=== PATIENT | female | born 2000 | race Caucasian/White ===

== ENCOUNTER 2024-06-24 10:38 | Day surgery (SDC) | payer SELFPAY ==
--- NOTE | 2024-06-23 14:52 | PCM.HP.BLA ---
History and Physical Date of Admission: 06/24/24 HPI: The patient is a 23 year old female presenting for pre-operative visit. She is scheduled for hysteroscopy D&C, for abnormal uterine bleeding 6 weeks postdelivery, with ultrasound findings of thickened endometrium consistent with retained products of conception. on 06/24/24. Procedure discussed along with risks, benefits and complications. Other alternatives discussed for management. Consent form signed? Yes. ? ? PAST MEDICAL HISTORY PAST MEDICAL HISTORYDiagnosisDate?Anemia??Endometriosis??Wanda Holland infection? ? ? PAST SURGICAL HISTORY PAST SURGICAL HISTORYProcedureLateralityDate?TONSILLECTOMY & ADENOIDECTOMY <AGE 10???possibly just tonsils ? ? ? CURRENT MEDICATIONS Current Outpatient MedicationsMedicationSigDispenseRefill?ferrous sulfate (IRON ORAL)Take by mouth.???thymol/chlorophyllin (CHLOROPHYLL ORAL)Take by mouth.???milk thistle/NAC/dandel/turmer (LIVER COMPLEX ORAL)Take by mouth.???No current facility-administered medications for this visit. ? ? ALLERGIES: Patient has no known allergies. ? PERSONAL HISTORY: SOCIAL HISTORY Social History?Tobacco Use?Smoking status:Never?Smokeless tobacco:NeverVaping Use?Vaping status:Never UsedSubstance Use Topics?Alcohol use:Not Currently?Drug use:Never ? FAMILY HISTORY: FAMILY HISTORY FAMILY HISTORY ProblemRelationAge of Onset?other (Arthrogryposis)Sister? ? ? REVIEW OF SYMPTOMS: GENERAL: denies fevers or chills ENDOCRINOLOGY: has not been on steroids Cardiology : denies palpitations or chest pain Respiratory: denies SOB or cough Hematology: denies history of prolonged bleeding or easy bruising or VTE Allergy: Denies history of personal or family history of allergy to anesthesia ? PHYSICAL EXAMINATION: ? VITALS: Blood pressure 108/70, pulse 83, resp. rate 16, height 165.1 cm (5' 5), weight 68.5 kg (151 lb), SpO2 98%, currently . ? GENERAL: The patient is well nourished, well hydrated in no acute distress. , The patient is oriented to time, place, and person. NECK: Supple. No lynphadenopathy, normal thyroid, no thyromegaly. LUNGS: Clear to auscultation bilaterally. no wheezes, rhonchi or rales HEART: Regular rate and rhythm, Normal heart sounds, and No murmurs or gallops ? IMPRESSION: 6 weeks from home delivery with ultrasound findings consistent with retained products of conception and abnormal uterine bleeding. See preoperative labs. ? PLAN: he risks/benefits/alternatives and personal involved for the planned Hysteroscopy D&CT were reviewed with the patient. Her questions were answered to her satisfaction and she desires to proceed. Consent was signed. I reviewed with her postop instructions and expectations. ? ? I have reviewed and updated past medical and surgical history, medications and allergies Assessment & Plan Assessment/Plan (1) Abnormal uterine bleeding (AUB): (2) Retained products of conception after delivery with complications: (3) Endometrial thickening on ultrasound:
[2024-06-24] VITALS (11 sets, daily range): BP systolic 93–107; BP diastolic 60–74; PULSE 63–86; RESP 14–16; TEMP 36.1–36.6; O2SAT 98–100; BMI 25.3
[2024-06-24 11:23] LABS: Absolute Lymphocyte Count 2.66 X10^3/uL (0.83-4.51); Absolute Neutrophil Count 2.6 X10^3/uL (2.0-7.7); Basophil# 0.06 X10^3/uL; Eosinophils% 1.7 % (0-5); Hemoglobin 12.7 g/dL (12.0-15.0); Lymphocyte # 2.66 X10^3/ul (0.83-4.51); Lymphocyte % 45.8 % (19-41); Mean Corp Hgb Conc 34.3 g/dL (32-36); Mean Corpuscular Hgb 29.6 pg (27.0-32.0); Mean Corpuscular Volume 86.2 fL (81-99); Mean Platelet Vol. 9.1 fl (6.2-12.0); Monocyte# 0.34 X10^3/uL; Monocyte% 5.9 % (0-10); NRBC Flagged by Analyzer 0 % (0-5); Neutrophil # 2.63 X10^3/uL (2.7-7.7); Neutrophil % 45.3 % (47-70); Platelet Count 228 K/mm3 (150-450); RBC Distribution Width CV 12.3 % (11.6-14.6); RBC Distribution Width SD 39.1 fl (35.1-43.9); Red Blood Count 4.29 M/mm3 (4.2-5.4); White Blood Count 5.8 K/mm3 (4.4-11.0)
--- NOTE | 2024-06-24 11:27 | PCM.PRE.AN2 ---
ASA Classification* ASA Classification ASA Classification: 2 Assessment & Plan Anesthesia* Anesthesia Assessment Anesthesia Assessment: Discussed sedation and/or anesthesia options, risks, benefits, and alternatives with patient/parents/legal guardian/POA. Questions invited. The patient/parents/legal guardian/POA seems to understand and agrees to proceed with anesthesia plan. Reviewed the physical assessment, medical history, allergy history and patient home medications list prior to surgery/procedure/anesthetic and documented any changes. Performed airway and anesthesia risk assessments. Anesthesia Type Anesthesia Type: MAC Anesthesia Focused Assessment* Temperature: 97.8 F Pulse Rate: 86 Blood Pressure: 107/74 Respiratory Rate: 16 Pulse Ox: 100 Airway Assessment Mouth opens: >3 cm Mallampati Score: II Focused Labs Anesthesia Preop lab: CBC WBC 5.8 K/mm3 (4.4-11.0) 06/24/24 11:16 06/24/24 RBC 4.29 M/mm3 (4.2-5.4) 06/24/24 11:16 06/24/24 Hgb 12.7 g/dL (12.0-15.0) 06/24/24 11:16 06/24/24 Hct 37.0 % (37-47) 06/24/24 11:16 06/24/24 Plt Count 228 K/mm3 (150-450) 06/24/24 11:16 06/24/24 CHEMISTRY COAG HCG, Quant Pending 06/24/24 11:16 06/24/24 Pre-Assessment Diagnosis/Proposed Procedure Planned Operative Procedure(s): D&C Anesthesia History 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 When Was Last Pacemaker Check QUESTION #4 FULL TEXT: You/Your Family Experience fever (hyperthermia) with Anesthesia Last Oral Intake Last Oral intake: Last Oral Intake NPO since 07:45 06/24/24 11:11 Meds taken in AM with sips of No 06/24/24 11:11 water? 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 technician Female Yes 06/23/24 13:33 HX of Motion Sickness No 06/23/24 13:33 HX of N/V After Surgery No 06/23/24 13:33 Non-Smoker Yes 06/23/24 13:33 Duration of Surgery greater No 06/23/24 13:33 than 60 minutes Number of Risk Factors 2 06/23/24 13:33 PONV Score Moderate Risk 06/23/24 13:33 Height & Weight Height & Weight: Anesthesia: Height & Weight Height 5 ft 4 in 06/24/24 11:11 Weight: 67 kg 06/24/24 11:11 Body Mass Index (BMI) 25.3 06/24/24 11:11 Respiratory Assessment Respiratory Assessment - pearl technician: Respiratory Tract Infection Hx - pearl technician Hx Respiratory Tract Infection No 06/23/24 13:33 STOP Sleep Apnea STOP Sleep Apnea - pearl technician: STOP Sleep Apnea - pearl technician Hx Hypertension No 06/23/24 13:33 Hx Sleep Apnea No 06/23/24 13:33 CPAP BIPAP Do you snore loudly (louder No 06/23/24 13:33 than talking or can be heard Do you often feel tired/ No 06/23/24 13:33 fatigued/ sleepy during daytime? Has anyone observed you stop No 06/23/24 13:33 breathing during sleep? STOP Results Negative 06/23/24 13:33 QUESTION #5 FULL TEXT : Do you snore loudly (louder than talking or can be heard through closed doors)? 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 Specify any problems Hx of Preganancy in last 3 Yes 06/23/24 13:33 Months Nurse Filling Out Transfusion VCHRISTIN 06/23/24 13:33 & Questions: Date: 06/23/24 06/23/24 13:33 Time: 13:36 06/23/24 13:33 Patient unable to answer at this time (ie. confused, unrespo /Reproduction History /Reproductive History - pearl technician: /Reproductive Hx- pearl technician Hx Now No 06/23/24 13:33 Gestational Age (in weeks): EDC: Hx Hx Para Hx Section SAB Yes 06/23/24 13:33 Active Medications Active Medications: Current Medications Generic Name Dose Route Start Last Admin Trade Name Freq PRN Reason Stop Dose Admin Cefazolin Sodium 2 gm/ N/A 20 mls @ 400 mls/hr 06/24/24 12:00 IV 06/24/24 12:02 INTRAOP ONE [facility] Medical History Anemia Syncope Gastric reflux Non-smoker Shortness of breath on exertion Home Medications ?Medication ?Instructions ?Recorded ?Last Taken ?Type Lactobacillus acidophilus 10 100 mmu cells PO DAILY 06/23/24 Unknown History billion cell capsule (NewFlora) colostrum, bovine 400 mg 400 mg PO DAILY 06/23/24 Unknown History capsule,delayed release ferrous sulfate 325 mg (65 mg 325 mg PO DAILY 06/23/24 Unknown History iron) tablet (Caesar-Time) potassium gluconate 595 mg (99 mg) 595 mg PO DAILY 06/23/24 Unknown History tablet Allergy/AdvReac Type Severity Reaction Status Date / Time No Known Allergies Allergy Verified 06/24/24 11:09 Surgical History Hx of tonsillectomy Social History Smoking Status: Never smoker Review of Systems (Anesthesia) ROS Narrative System reviewed and no additional complaints, except as documented.
[2024-06-24 11:55] LABS: hCG Titer Quant., Serum < 1 mIU/mL (<9 non-preg)
--- NOTE | 2024-06-24 12:26 | PCM.DC ---
Discharge Instructions Diet Discharge Diet: No restrictions DC O2, CPAP, BIPAP needs Home O2 Discharge instructions: No Dressing / Incision Discharge Activity: Return to Normal Activity, May Shower and May Take a Tub Bath (in 1 week) May resume sexual activity in: 1 week Lifting Restrictions: none Dressing / Incision Call your doctor if your incision/area has: Sudden Increased Bleeding and Foul Smelling Discharge Call your doctor if you observe: Fever of 101 or Higher and Using more than 1 pad per hour (for 2 hrs in a row) Follow Up Care Please Follow Up With: Yuliet Sanchez MD When: 2-4 or weeks or as needed. Call [phone] or send a Groupspeak message to make an appointment or with any concerns. Test Results: Test results from this visit will be discussed in further detail at your follow-up appointment, if applicable. Discharge Plan Admission Attending Provider: Yuliet Sanchez Primary Care Provider: Care Physician,No Primary Instructions Print Language: Honduran Discharge Orders/Prescriptions Prescriptions: No Action ferrous sulfate [Caesar-Time] 325 mg (65 mg iron) tablet 325 mg PO DAILY colostrum, bovine 400 mg capsule,delayed release(DR/EC) 400 mg PO DAILY potassium gluconate 595 mg (99 mg) tablet 595 mg PO DAILY NewFlora 10 billion cell capsule 100 mmu cells PO DAILY Disposition Disposition (needs filled in before D/C Order can be placed): Home, Self Care
[2024-06-24] MEDS: Cefazolin 2 GM in Syringe IV (12:32)
[2024-06-24] MEDS: Lidocaine 1% /Epi 1:100 (20ml) 20 ML Vial (12:42)
--- NOTE | 2024-06-24 13:00 | OP.PCM_ITS ---
Problems Associated Problem List Diagnoses (1) Endometrial thickening on ultrasound: (2) Retained products of conception after delivery with complications: (3) Abnormal uterine bleeding (AUB): Operative Report (Standard) Operative Information Date of Procedure: 06/24/24 Pre-Operative Diagnosis: suspected retained products of conception, AUB, thickened endometrium Post-Operative Diagnosis: same Surgery/Procedure Performed: Hysteroscopy D&C export documents clerk: No Type of Anesthesia: MAC/Supplemental/Local RN Documented Start/Stop Times: Operation Date: 06/24/24 13:20 Case Time Into Pre-Op 06/24/24 11:04 Procedure Start Time: 12:42 Procedure Stop Time: 12:53 Select all DRAINS/GRAFTS/IMPLANTS that apply: None Special Medications: none Estimated Blood Loss: 30 Fluids Replaced: 300 Specimen collected: Yes Description of specimen(s) removed: endoemtrial curettings Description of surgery: The patient was taken to the OR where she was prepped and draped in dorsal lithotomy position. The weighted speculum was placed in the vagina and the anterior lip of the cervix was grasped with a single-tooth tenaculum. A paracervical block was administered with 1% lidocaine with 1-100,000 epinephrine solution. The cervix was dilated serially with Hegar dilators. The 5mm hysteroscope was placed into the uterine cavity and the above findings were noted. Bilateral tubal ostia were identified. The hysteroscope was removed. A gentle sharp curettage was done of the uterine cavity. The cavity was again visualized and the thickened endometrial areas were now ragged and no evidence of retained tissue was noted. No other focal abnormalities were noted in the uterus or endocervix. The instruments were removed from the vagina. The specimen was handed off and sent to pathology. All sponge and needle counts were correct. Vaginal sweep was performed by me. The patient was awakened and taken to the recovery room in stable condition. Hysteroscopic fluid deficit calculated to be 250 cc of normal saline Surgical Findings: ragged endometrium, appeared to be tissue left lateral superior and right lateral inferior portion of cavity Complications Complications: No Admit VTE Documentation VTE Present on Admission: No VTE Mechan Device Prophylaxis: [facility] VTE Pharm Prophylaxis ordered?: No
--- NOTE | 2024-06-24 13:06 | PCM.POST.ANE ---
Anesthesia: Postop Eval I Current Vital Signs Temperature: 97.1 F Pulse Rate: 69 Blood Pressure: 94/69 Respiratory Rate: 14 Pulse Ox: 98 Assessment Airway patent: Yes Spontaneous unlabored respirations: Yes nausea: Yes Vomiting: No Anesthesia Complication: No Fluid Hydration Crystalloid volume administer (ml): 500 Total IV fluid infused: 500 Progress Note Anesthesia document: Postop Eval 1 completed: Yes
--- NOTE | 2024-06-24 13:20 | EMB_PTH ---
PATIENT: VALERIA MCDONALD LOC: [facility] [place] U#:[id number] AGE/SX: 23/F ROOM: RE06/24/[address]: Dr. Yuliet Sanchez MD : 2000 BED: DIS: 06/24/2024 SPEC #: [id number] RECD: 06/24/24 13:43 STATUS: YAEL REJohn #: [id number] ATIF: 06/24/24 13:[address]: Yuliet Sanchez DEPT: SURGICAL PATHOLOGY RECD BY: Louis Estrella ENTERED: 06/24/24 13:43 SP TYPE: ENDOM BX/C KAIDEN DR: No Primary Care Phys Tissues: A - Endometrium, NOS Procedures: Surgery Specimen Level IV HEADER OPERATION: Hysteroscopy, D&C PRE-OP DIAGNOSIS: Abnormal uterine bleeding, retained products of conception after delivery with complications, endometrial thickening on ultrasound TISSUE SUBMITTED: A- Endometrial curettings MICROSCOPIC DIAGNOSIS A. Uterus, endometrium, curettage: * Inflamed and degenerating decidua with organizing blood clot * Proliferative endometrium with areas of stromal breakdown MICROSCOPIC DESCRIPTION Slides are reviewed. GROSS DESCRIPTION A. Received in formalin in a container labeled with the patient's name, date of , and endometrial curettings are multiple red-lam fragments of soft tissue admixed with blood and mucus measuring 2.5 x 2.0 x 1.0 cm in aggregate. Submitted in toto in A1-3. [facility] 06/28/2024 CPT:[id number]
--- NOTE | 2024-06-24 13:50 | POSTOPAN2_ITS ---
Anesthesia Postop Eval I Sum Postop Eval Completion status Anesthesia document: Postop Eval 1 completed: Yes Anesthesia Postop Eval I Summary Anesthesia Postop Eval I Summary: Anesthesia Postop Eval I: Assessment Summary Airway patent Yes 06/24/24 13:06 TELEPHONE [email or web address] Spontaneous unlabored Yes 06/24/24 13:06 TELEPHONE [email or web address] respirations Mental status nausea Yes 06/24/24 13:06 TELEPHONE [email or web address] Vomiting No 06/24/24 13:06 TELEPHONE [email or web address] Anesthesia Postop Eval I: Fluid Summary Crystalloid volume administer 500 06/24/24 13:06 TELEPHONE [email or web address] (ml) Colloids volume administered ( ml) Blood Product volume administered (ml) Total IV fluid infused 500 06/24/24 13:06 TELEPHONE [email or web address] Anesthesia Postop Eval I: Summary Notes Anesthesia Complication No 06/24/24 13:06 TELEPHONE [email or web address] Anesthesia Complication Comment: Post-operative progress note Anesthesia: Postop Eval II Evaluation Mental status: Awake Pain Level: 0 nausea: No Vomiting: No
--- NOTE | 2024-06-24 13:50 | PCM.POSTANE2 ---
Anesthesia Postop Eval I Sum Postop Eval Completion status Anesthesia document: Postop Eval 1 completed: Yes Anesthesia Postop Eval I Summary Anesthesia Postop Eval I Summary: Anesthesia Postop Eval I: Assessment Summary Airway patent Yes 06/24/24 13:06 [email or web address] Spontaneous unlabored Yes 06/24/24 13:06 [email or web address] respirations Mental status nausea Yes 06/24/24 13:06 [email or web address] Vomiting No 06/24/24 13:06 [email or web address] Anesthesia Postop Eval I: Fluid Summary Crystalloid volume administer 500 06/24/24 13:06 [email or web address] (ml) Colloids volume administered ( ml) Blood Product volume administered (ml) Total IV fluid infused 500 06/24/24 13:06 [email or web address] Anesthesia Postop Eval I: Summary Notes Anesthesia Complication No 06/24/24 13:06 [email or web address] Anesthesia Complication Comment: Post-operative progress note Anesthesia: Postop Eval II Evaluation Mental status: Awake Pain Level: 0 nausea: No Vomiting: No
== END 2024-06-24 14:21 | disposition home or self-care (01) ==
LOC: SDC 10:57 → AC 10:58
PROVIDERS: Referring Provider Obstetrics & Gynecology; Visit Provider Obstetrics & Gynecology
PROC: 0UDB8ZZ Extraction of Endometrium, Via Natural or Artificial Opening Endoscopic (ICD-10-PCS; CPT 58558; principal; 2024-06-24 13:10)
DX: O72.2 Delayed and secondary postpartum hemorrhage (principal); O99.893 Other specified diseases and conditions complicating puerperium; R93.89 Abnormal findings on diagnostic imaging of other specified body structures; Z3A.00 Weeks of gestation of pregnancy not specified
CPT/HCPCS: 58558; 00952; 84702; 85025; 86850; 86900; 86901; 88305; A4216